=== PATIENT | female | born 1985 | race Caucasian/White ===

== ENCOUNTER → 2021-02-13 | Outpatient (CLI) | payer MEDICARE, MEDICAID | END | disposition home or self-care (01) | LOC: CARD DIAG 15:49 | PROVIDERS: ATTEND Internal Medicine Cardiovascular Disease | DX: I08.1 Rheumatic disorders of both mitral and tricuspid valves (principal); Q90.9 Down syndrome, unspecified | CPT/HCPCS: 93306 ==